=== PATIENT | male | born 2000 | race Caucasian/White ===

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

== ENCOUNTER 2023-10-21 15:47 | Outpatient (REF) | payer BC, SELFPAY ==
[2023-10-23 12:24] LABS: Helicobacter pylori Ag, Feces Negative (Negative)
== END 2023-10-21 15:48 | disposition home or self-care (01) ==
LOC: LBN 15:47
PROVIDERS: PCP Nurse Practitioner Adult Health; Visit Provider Physician Assistant
DX: R10.13 Epigastric pain (principal)
CPT/HCPCS: 87338

== ENCOUNTER 2023-11-28 07:42 | Outpatient (CLI) | payer BC, SELFPAY ==
[2023-11-28 07:43] LABS: HCT 44.3 % (40.0-50.0); HGB 15.6 g/dL (13.5-17.5); MCHC 35.2 % (32.0-36.0); MCV 88 fL (80-95); MPV 9.3 fL (8.0-11.0); Platelet Count 180 10^3/uL (130-400); RBC 5.04 10^6/uL (4.36-5.78); RDW 11.8 % (11.8-14.1); WBC 5.12 10^3/uL (4.4-10.8)
[2023-11-28 08:00] LABS: Lipase 47 U/L (16-77)
[2023-11-28 08:02] LABS: ALT 50 U/L (16-63); AST 32 U/L (15-37); Albumin 4.8 g/dL (3.4-5.0); Alkaline Phosphatase 115 U/L (46-116); BUN 17 mg/dL (7-18); Bilirubin, Total 0.9 mg/dL (0.2-1.0); CREATININE 1.1 mg/dL (0.70-1.30); Calcium 9.4 mg/dL (8.5-10.1); Chloride 102 mmol/L (98-107); Estimated GFR 97.34 (mL/min/1.73m2); Glucose 96 mg/dL (74-106); Potassium 3.7 mmol/L (3.5-5.1); Sodium 143 mmol/L (136-145)
[2023-11-29 11:04] LABS: Tissue Transglutaminase IgA 33.3 CU (<20.0)
== END 2023-11-28 07:43 | disposition home or self-care (01) ==
LOC: LBO 07:42
PROVIDERS: Family Medicine; PCP Nurse Practitioner Adult Health; Visit Provider Nurse Practitioner Adult Health
DX: K90.0 Celiac disease (principal); R10.11 Right upper quadrant pain
CPT/HCPCS: 36415; 80053; 83690; 85027